=== PATIENT | male | born 1990 | race Caucasian/White ===

== ENCOUNTER 2025-02-27 19:06 | Emergency (ER) | payer SELFPAY ==
[~2025-02-27] VITALS: Ht 172.7 cm; Wt 73.0 kg
[2025-02-27 19:08] VITALS: BP 140/78; PULSE 78; RESP 16; TEMP 36.7; O2SAT 98
[2025-02-27] MEDS: LORAZEPAM 1MG TABLET PO ONE (21:33)
== END 2025-02-27 22:08 | disposition home or self-care (01) ==
LOC: ER 19:06
DX: S52.92XA Unspecified fracture of left forearm, initial encounter for closed fracture (principal); Z88.0 Allergy status to penicillin; Z88.1 Allergy status to other antibiotic agents; X58.XXXA Exposure to other specified factors, initial encounter; Y93.89 Activity, other specified; Y92.89 Other specified places as the place of occurrence of the external cause; Y99.8 Other external cause status
CPT/HCPCS: 99284; 70100; 73090; 73610; 29125; A6449